=== PATIENT | male | born 2000 | race Caucasian/White ===

== ENCOUNTER 2021-09-23 08:06 | Emergency (ER) | payer OTHER ==
[2021-09-23] MEDS ORDERED: Ketorolac Tromethamine 30 MG/ML VIAL ONE (09:13)
[2021-09-23 09:21] LABS: #Basophils 0.1 10x3/uL (0.0-0.2); #Eosinphils 0.1 10x3/uL (0.0-0.5); #Monocytes 0.5 10x3/uL (0.0-1.1); #Neutrophils 5.9 10x3/uL (1.5-8.4); %Basophils 0.8 % (0.0-2.0); %Eosinophils 1.3 % (0.0-6.0); %Monocytes 6.2 % (0.0-10.0); %Neutrophils 74.6 % (40.0-75.0); Hemoglobin 14.5 g/dL (13.5-17.5); Mean Corpuscular HGB CONC 34.5 g/dL (32.0-36.0); Mean Corpuscular Hemoglobin 29.4 pg (27.0-33.0); Mean Platelet Volume 9.9 fl (7.4-10.4); Platelet Count 235 10x3/uL (150-450); RBC Distribution Width 12.1 % (11.5-14.5); Red Blood Cell (RBC) Count 4.94 10x6/uL (4.32-5.72); White Blood Cell (WBC) Count 7.9 10x3/uL (3.5-10.5)
[2021-09-23 09:41] LABS: Bilirubin Neg (Negative); Blood, Urine 250 (Negative); Clarity Clear (Clear); Glucose, Urine (Dipstick) Normal (Negative); Ketone, Urine Negative (Negative); Leukocyte Negative (Negative); Nitrite Negative (Negative); Protein, Urine (Dipstick) 15 mg/dl (Neg-Trace); Specific Gravity, Urine 1.015 (1.002-1.036); Urobilinogen Normal mg/dL (Less than 2)
[2021-09-23 09:43] LABS: ALT (SGPT) 24 U/L (8-55); AST (SGOT) 22 U/L (5-34); Albumin 4.6 g/dL (3.5-5.0); Alkaline Phosphatase 70 U/L (50-130); Anion Gap 11 mmol/L (10-20); BUN (Urea Nitrogen) 12 mg/dL (8.9-20.6); Bilirubin, Total 0.5 mg/dL (0.2-1.2); Calc. Creatinine Clearance 0 mL/min (70-130); Calcium 9.7 mg/dL (7.8-10.44); Carbon Dioxide 24 mmol/L (22-29); Chloride 109 mmol/L (98-107); Estimated GFR 129; Globulin 2.6 g/dL (2.4-3.5); Glucose 104 mg/dL (70-105); Potassium 5.1 mmol/L (3.5-5.1); Protein, Total 7.2 g/dL (6.0-8.3); Sodium 139 mmol/L (136-145)
[2021-09-23 10:11] LABS: Bacteria/HPF 1+ HPF (None Seen); Mucous/LPF 2+ LPF (<2+); Squamous Epithelial 0-3 HPF (0-3); WBC/HPF 0-3 HPF (0-3)
== END 2021-09-23 10:35 | disposition home or self-care (01) ==
LOC: CSHERS 08:06
DX: N20.0 Calculus of kidney (principal)
CPT/HCPCS: 36415; 74176; 80053; 81003; 81015; 85025; 96372; J1885